=== PATIENT | male | born 1980 | race Caucasian/White ===

== ENCOUNTER 2023-07-09 15:37 | Outpatient (AMB) | payer OTHER, SELFPAY ==
--- NOTE | 2023-07-09 15:58 | MHC.PC.OV ---
Vital Signs 07/09/23 16:03 07/09/23 16:50 Height 5 ft 5 in Weight 175 lb BMI 29.1 BP 132/90 H 130/90 H Blood Pressure Location Rt brachial Rt brachial Position Sitting Sitting Pulse 78 Pulse Source Pulse Oximeter Pulse Oximetry (%) 98 Oxygen Delivery Method Room Air Intake Visit Reasons: NPV/requesting phy Intake Note: Patient here to establish care and asking for PE. Allergies No Known Allergies Allergy (Verified 07/09/23 16:03) Tobacco use date assessed: 07/09/23 Dental Screening Dental Screen Date: 07/09/23 Did you have a dental visit in the last 12 months?: Yes Did you have a dental problem in the last 6 months where you did not have access to dental care?: No Was dental information given to patient?: Patient has dentist HPI NPV/requesting phy HPI Details Patient is here for physical exam. His BP was noted to be elevated x2. I will have him take his blood pressure at home and drop off values in the near future. HPI Comments History of Present Illness Details Pt is here for a PE. colonoscopy is up to date [facility] Social History Housing: [place] Patient Tobacco Use Status: Never used Tobacco e-Cigarette/Vaping Use: Never Used service: No Current occupational status: employed Current occupational exposures/hazards: No Cognitive needs: No Hearing needs: No Vision needs: No Questionnaire PHQ-9 Over the last 2 weeks, how often have you been bothered by any of the following problems? 1. Little interest or pleasure in doing things: not at all 2. Feeling down, depressed, or hopeless: not at all 3. Trouble falling or staying asleep, or sleeping too much: more than half the days 4. Feeling tired or having little energy: not at all 5. Poor appetite or overeating: not at all 6. Feeling bad about yourself - or that you are a failure or have let yourself or your family down: not at all 7. Trouble concentrating on things, such as reading the newspaper or watching television: not at all 8. Moving or speaking so slowly that other people could have noticed. Or the opposite - being so fidgety or restless that you have been moving around a lot more than usual: not at all 9. Thoughts that you would be better off or of hurting yourself in some way: not at all Total score: 2 Depression Screening Interpretation: Negative Depression Screening Done: Yes 90610 - PHQ-9 Billing: Yes Source: Developed by Regina Hernandez Kurt Kroenke and colleagues, with an educational reinaldo from [employer]. Thrive Questionnaire Date Thrive assessed: 07/09/23 I am a: Patient What is your living situation today?: I have a steady place to live Within the past 12 months, did the food you bought not last and you didn't have the money to get more?: Never true Within the past 12 months, did you worry whether your food would run out before you got money to buy more?: Never true Do you have trouble paying for medicines?: No Do you have trouble getting transportation to medical appointments?: No Do you have trouble paying your heating and electricity bill?: No Do you have trouble taking care of your child, family member or friend?: No Do you have trouble with day-to-day activities such as bathing, preparing meals, shopping, managing finances, etc.?: No Are you currently unemployed and looking for a job?: No Are you interested in more education?: No Currently or been in a relationship where the following occur: no concerns reported AUDIT C Alcohol Use Questionnaire (AUDIT-C) 1. How often do you have a drink containing alcohol?: Never 3. How often do you have six or more drinks on one occasion?: Never Total Score: 0 Score Reviewed/Action Taken: No NAY-7 AMB Questionnaire NAY-7 Feeling nervous, anxious, or on edge: 0 = Not at all Not being able to stop or control worryin = Not at all Worrying too much about different things: 0 = Not at all Trouble relaxin = Not at all Being so restless that it is hard to sit still: 0 = Not at all Becoming easily annoyed or irritable: 1 = Several days Feeling afraid as if something awful might happen: 0 = Not at all Total NAY-7 score (0-4 normal; 5-9 mild; 10-14 moderate; 15-21 severe): 1 Source: Developed by Regina Hernandez Kurt Kroenke and colleagues, with an educational reinaldo from [employer]. NAY-7 Assessment Billing NAY-7 Assessment Tool: NAY-7 Assessment 22645 Review of Systems Const Denies chills and Denies fever(s) Eyes Denies blurry vision ENT Denies vertigo, Denies dizziness and Denies sore throat Card Denies chest pain at rest, Denies chest pain with activity, Denies diaphoresis, Denies dyspnea and Denies dyspnea on exertion Resp Denies cough, Denies dyspnea, Denies dyspnea on exertion and Denies wheezing GI Denies abdominal pain, Denies melena, Denies hematochezia, Denies constipation, Denies diarrhea and Denies loose stools Denies hematuria Musc Denies numbness and Denies tingling Skin/Breast Denies lesions Neuro Denies vertigo, Denies dizziness, Denies numbness and Denies tingling Psych Denies anxiety, Denies depression, Denies homicidal ideation, Denies suicidal ideation and Denies other (substance abuse) Aller/Immun Denies wheezing Physical exam (Primary Care) Vital Signs: Last Vital Signs Pulse 78 07/09/23 16:03 BP 130/90 H 07/09/23 16:50 Pulse Ox 98 07/09/23 16:03 Oxygen Delivery Method Room Air 07/09/23 16:03 BMI result Body Mass Index 29.1 Tobacco/Smoking Status: Tobacco use Status Tobacco use date assessed 07/09/23 07/09/23 16:09 Patient Tobacco Use Status Never used Tobacco 07/09/23 16:09 e-Cigarette/Vaping Use Never Used 07/09/23 16:09 PHQ-9: PHQ-9 Score PHQ-9: Total score 2 07/09/23 16:50 Depression Screening Interpretation: Negative Thrive Assessment: Date of Thrive Assessment Date Thrive assessed 07/09/23 07/09/23 16:09 Currently or been in a relationship where the following occur: no concerns reported Const General: cooperative Nutritional Appearance: well nourished Orientation/consciousness: patient oriented x3 HENMT Head: Yes normal to inspection, Yes normocephalic and Yes atraumatic Ears: TM normal on the right and TM normal on the left Eyes General: appearance normal, both eyes and all related structures Alignment and Position: alignment normal and position normal Neck Neck: Yes normal visual inspection and Yes no lymphadenopathy Resp Effort & Inspection: normal respiratory effort Auscultation: clear to auscultation bilaterally Cardio Rate: regular rate Rhythm: regular rhythm Heart sounds: S1 normal heart sound present, S2 normal heart sound present and no murmurs GI Palpation (GI): Soft to palpation and nontender Auscultation: normal bowel sounds Male General Exam: Yes normal external exam Penis: normal penis Scrotum: scrotum normal, testes descended bilaterally and no inguinal hernias Testes: no testicular mass Skin Rashes: no rashes Neuro General: patient oriented x3, moves all extremities, no focal motor deficits and deep tendon reflexes 2+ bilaterally Romberg Test: Negative Extrem Right lower extremity: no edema Left lower extremity: no edema Psych Affect: normal affect Attitude: cooperative Thought process: Normal thought process present Office Procedures Flu Questionnaire Does the patient have a severe egg allergy?: No Does the patient have severe life threatening allergies?: No Does the patient have a fever or illness today?: No Has the patient ever had Guillain-[place] Syndrome?: No Has the patient ever had any past reaction to a flu shot?: No Immunizations flu vacc [id number] 6mos up(PF) 60 mcg(15 mcgx4)/0.5 mL IM syringe Performing Provider: STEPHANIE Mendosa Performing Location: [facility] Administered by: OSCAR Yu on 07/09/23 17:00 Dose Route Admin Location Dispensed Lot Number Expiration Date NDC Punch Machine Hand 0.5 mL IM Left Deltoid 0.5 mL [id number] 01/04/24 [id number] [place] VIS Given Date VIS Provided VIS Publication Date 07/09/23 Single Vaccine 21 Eligibility Eligibility Date Funding Source Not [facility] Eligible 07/09/23 Private Assessment and Plan Assessment & Plan (1) Encounter for routine adult physical exam with abnormal findings: Code(s): Z00.01 - Encounter for general adult medical examination with abnormal findings Plan: pt will drop off BP values in the near future. (2) Elevated BP without diagnosis of hypertension: Code(s): R03.0 - Elevated blood-pressure reading, without diagnosis of hypertension Orders: Orders Lipid Panel Today Z00.00 - Encounter for general adult medical examination without abnormal findings Complete Blood Count Auto Diff Today Z00.00 - Encounter for general adult medical examination without abnormal findings Comprehensive [place]. Panel Fast Today Z00.00 - Encounter for general adult medical examination without abnormal findings TSH reflex Free T4 Today Z00.00 - Encounter for general adult medical examination without abnormal findings UA CC w/rflx Micro + Cult Today Z00.00 - Encounter for general adult medical examination without abnormal findings Influenza [id number] Immunization Today Z23 - Encounter for immunization Coding Level of Care Code New Pt Prev Care 40-64y(17909) Diagnoses Encounter for routine adult physical exam with abnormal findings Z00.01 Elevated BP without diagnosis of hypertension R03.0 Additional Codes NAY-7 Assessment Billing - NAY-7 Assessment Tool: NAY-7 Assessment 01999 ([id number])
[2023-07-09 16:03] VITALS: BP 132/90; PULSE 78; O2SAT 98; BMI 29.1
[2023-07-09 16:50] VITALS: BP 130/90
== END 2023-07-09 17:16 | disposition home or self-care (01) ==
PROVIDERS: PCP Nurse Practitioner Family; Visit Provider Nurse Practitioner Family
DX: Z00.01 Encounter for general adult medical examination with abnormal findings (principal); R03.0 Elevated blood-pressure reading, without diagnosis of hypertension; Z23 Encounter for immunization
CPT/HCPCS: 90471; 90686; 99386

== ENCOUNTER 2024-07-14 08:32 | Outpatient (AMB) | payer OTHER, SELFPAY ==
[2024-07-14 08:34] VITALS: BP 128/80; PULSE 78; O2SAT 98; BMI 28.1
--- NOTE | 2024-07-14 08:34 | MHC.PC.OV ---
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 Accompanied by: Self / Same As Patient Allergies No Known Allergies Allergy (Verified 07/14/24 09:33) Medication List - Last Reconciled 07/14/24 by FRANCESCO Mendosa No Known Home Meds Tobacco use date assessed: 07/14/24 Dental Screening Dental Screen Date: 07/14/24 Did you have a dental visit in the last 12 months?: Yes Did you have a dental problem in the last 6 months where you did not have access to dental care?: No Was dental information given to patient?: Patient has dentist HPI Annual PE HPI Details History of Present Illness The patient is a 43-year-old male presenting for a physical examination. He denies any fevers, chills, chest pain, shortness of breath, headache, nausea, vomiting, diarrhea, or constipation. Additionally, there is no reported family history of cancer, including pancreatic and prostate cancer. He does not have any ongoing issues related to anxiety or depression, and there are no suicidal or homicidal ideations. The current status appears stable as no acute medical issues or significant chronic problems were reported at this visit. Health Maintenance - Discussed the importance of obtaining routine laboratory evaluations, including fasting blood tests, to monitor general health status. Social History Review of Systems - General: Denies fevers, chills. - Cardiovascular: Denies chest pain. - Respiratory: Denies shortness of breath. - Gastrointestinal: Denies nausea, vomiting, diarrhea, constipation. - Neurological: Denies headache. - Psychiatric: Denies anxiety, depression, suicidal ideation, homicidal ideation. Physical Exam General: Cooperative, healthy appearing, comfortable, no acute distress and well developed Orientation: Patient oriented x3 Limitations: No limitations Head: Normal to inspection Ears: TMs without erythema Nose: Normal external nose present Face and sinus: Normal facial exam Eyes: Appearance normal, both eyes and all related structures Neck: Normal visual inspection and Yes full ROM Respiratory: Normal respiratory effort and able to speak in complete sentences. Clear to auscultation bilaterally Cardiovascular: Regular rate and rhythm. Normal S1 and S2 GI: Normal to inspection. Soft to palpation and nontender Skin: No rashes or lesions noted Neuro: Patient oriented x3 Extremities: Normal to inspection Results Plan - Encourage the patient to complete fasting laboratory tests as part of routine health maintenance. Patient was informed and verbally consented to the use of an ambient scribe for clinic note documentation during this visit. Discussion Notes I addressed the importance of regular health maintenance and preventive care, including the need for fasting labs to ensure overall health status. No acute medical issues were identified during the visit. I advised the patient about the significance of these routine evaluations to facilitate early detection of potential health issues. The patient verbalized understanding and expressed willingness to follow through with lab testing. Patient Instructions - Please schedule and complete your fasting laboratory tests at your earliest convenience. - Continue to maintain a healthy lifestyle with a balanced diet and regular exercise. - Return for follow-up as recommended or if any new symptoms arise. [facility] Surgical History No pertinent past surgical history Social History Housing: [place] Patient Tobacco Use Status: Never used Tobacco e-Cigarette/Vaping Use: Never Used service: No Current occupational status: employed Current occupational exposures/hazards: No Cognitive needs: No Hearing needs: No Vision needs: No Questionnaire PHQ-9 Over the last 2 weeks, how often have you been bothered by any of the following problems? 1. Little interest or pleasure in doing things: not at all 2. Feeling down, depressed, or hopeless: not at all 3. Trouble falling or staying asleep, or sleeping too much: more than half the days 4. Feeling tired or having little energy: not at all 5. Poor appetite or overeating: not at all 6. Feeling bad about yourself - or that you are a failure or have let yourself or your family down: not at all 7. Trouble concentrating on things, such as reading the newspaper or watching television: not at all 8. Moving or speaking so slowly that other people could have noticed. Or the opposite - being so fidgety or restless that you have been moving around a lot more than usual: not at all 9. Thoughts that you would be better off or of hurting yourself in some way: not at all Total score: 2 Depression Screening Interpretation: Negative Depression Screening Done: Yes 06271 - PHQ-9 Billing: Yes Source: Developed by Drs. He Romero, Regina Medrano, Shahbaz Babcock and colleagues, with an educational reinaldo from [employer]. Thrive Questionnaire Date Thrive assessed: 07/14/24 I am a: Patient What is your living situation today?: I have a steady place to live Within the past 12 months, did the food you bought not last and you didn't have the money to get more?: Never true Within the past 12 months, did you worry whether your food would run out before you got money to buy more?: Never true Do you have trouble paying for medicines?: No Do you have trouble getting transportation to medical appointments?: No Do you have trouble paying your heating and electricity bill?: No Do you have trouble taking care of your child, family member or friend?: No Do you have trouble with day-to-day activities such as bathing, preparing meals, shopping, managing finances, etc.?: No Are you currently unemployed and looking for a job?: No Are you interested in more education?: No Please select the resources that you would like help with: None Currently or been in a relationship where the following occur: No concerns reported THRIVE Score: 0 AUDIT C Alcohol Use Questionnaire (AUDIT-C) 1. How often do you have a drink containing alcohol?: Never 3. How often do you have six or more drinks on one occasion?: Never Total Score: 0 Score Reviewed/Action Taken: Yes NAY-7 AMB Questionnaire NAY-7 Date NAY - 7 assessed: 07/14/24 Feeling nervous, anxious, or on edge: 0 = Not at all Not being able to stop or control worryin = Not at all Worrying too much about different things: 0 = Not at all Trouble relaxin = Not at all Being so restless that it is hard to sit still: 0 = Not at all Becoming easily annoyed or irritable: 0 = Not at all Feeling afraid as if something awful might happen: 0 = Not at all Total NAY-7 score (0-4 normal; 5-9 mild; 10-14 moderate; 15-21 severe): 0 Source: Developed by Drs. He Romero, Regina Medrano, Shahbaz Babcock and colleagues, with an educational reinaldo from [employer]. NAY-7 Assessment Billing NAY-7 Assessment Tool: NAY-7 Assessment 75666 Physical exam (Primary Care) Vital Signs: Last Vital Signs Pulse 78 07/14/24 08:34 BP 128/80 07/14/24 08:34 Pulse Ox 98 07/14/24 08:34 BMI result Body Mass Index 28.1 Tobacco/Smoking Status: Tobacco use Status Tobacco use date assessed 07/14/24 07/14/24 08:35 Patient Tobacco Use Status Never used Tobacco 07/14/24 08:35 e-Cigarette/Vaping Use Never Used 07/14/24 08:35 PHQ-9: PHQ-9 Score PHQ-9: Total score 2 07/14/24 09:17 Depression Screening Interpretation: Negative Thrive Assessment: Date of Thrive Assessment Date Thrive assessed 07/14/24 07/14/24 08:35 Currently or been in a relationship where the following occur: No concerns reported Office Procedures Flu Questionnaire Does the patient have a severe egg allergy?: No Does the patient have severe life threatening allergies?: No Does the patient have a fever or illness today?: No Has the patient ever had Guillain-[place] Syndrome?: No Has the patient ever had any past reaction to a flu shot?: No Immunizations Fluarix Triv 0513-3321 (PF) 45 mcg (15 mcg x 3)/0.5 mL IM syringe Performing Provider: STEPHANIE Mendosa Performing Location: [facility] [place] [facility] Administered by: Uche Haley CMA on 07/14/24 09:17 Dose Route Admin Location Dispensed Lot Number Expiration Date [facility] Computer Installer 0.5 mL IM Right Deltoid 0.5 mL [id number] 01/03/25 [id number] [employer] VIS Given Date VIS Provided VIS Publication Date 07/14/24 Single Vaccine 21 Eligibility Eligibility Date Funding Source Not [facility] Eligible 07/14/24 Private Coding Level of Care Code Est Pt Prev Care 40-64y(38765) Diagnoses Physical exam Z00.00 Additional Codes NAY-7 Assessment Billing - NAY-7 Assessment Tool: NAY-7 Assessment 78678 ([id number]) PHQ-9 - 92922 - PHQ-9 Billing: Yes ([id number]) Assessment & Plan Assessment & Plan (1) Physical exam: Code(s): Z00.00 - Encounter for general adult medical examination without abnormal findings Category: Medical Plan . Orders: Orders Comprehensive [place]. Panel Fast Today Z00.00 - Encounter for general adult medical examination without abnormal findings TSH reflex Free T4 Today Z00.00 - Encounter for general adult medical examination without abnormal findings UA CC w/rflx Micro + Cult Today Z00.00 - Encounter for general adult medical examination without abnormal findings Lipid Panel Today Z00.00 - Encounter for general adult medical examination without abnormal findings Complete Blood Count Auto Diff Today Z00.00 - Encounter for general adult medical examination without abnormal findings Influenza [id number] Immunization Today Z23 - Encounter for immunization
== END 2024-07-14 09:26 | disposition home or self-care (01) ==
PROVIDERS: PCP Nurse Practitioner Family; Visit Provider Nurse Practitioner Family
DX: Z23 Encounter for immunization (principal); Z00.00 Encounter for general adult medical examination without abnormal findings

== ENCOUNTER → 2024-07-14 08:32 | Outpatient (BNVA) | payer OTHER, SELFPAY | PROVIDERS: PCP Nurse Practitioner Family; Visit Provider Nurse Practitioner Family | DX: Z00.00 Encounter for general adult medical examination without abnormal findings (principal); Z23 Encounter for immunization | CPT/HCPCS: 90471; 90656; 96127 ==

== ENCOUNTER 2024-12-17 08:01 | Outpatient (AMB) | payer OTHER, SELFPAY ==
--- NOTE | 2024-12-17 08:08 | AM.OFFWIN_ITS ---
Intake Vital Signs 12/17/24 08:10 Height 5 ft 5 in Weight 159 lb BMI 26.5 BP 122/80 Blood Pressure Location Rt brachial Position Sitting Pulse 82 Pulse Source Pulse Oximeter Pulse Oximetry (%) 98 Oxygen Delivery Method Room Air Intake Visit Reasons: EP Back/RT hand pain Intake Note: Patient here for back and right arm pain that has been Patient Tobacco Use Status: Never used Tobacco Allergies No Known Allergies Allergy (Verified 12/17/24 08:16) Medication List - Last Reconciled 12/17/24 by Trini Figueroa MD No Known Home Meds Do you need a note to return to daycare/school/sports/work: No HPI EP Back/RT hand pain HPI Details History - The patient is a 44-year-old male pres enting with back and arm pain. - The patient reports the pain as being on the right side, extending down the arm and up the neck, causing numbness in the neck. - The pain started two years ago after d riving when the patient?s whole right side went numb, leading to an ER visit and admission. - Initial treatment involved a cortisone injection which provided relief at the start. - Pain has returned and was noticed on A pril 2022. - The patient currently manages pain wit h ibuprofen. 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 - The patient does not recall any specif ic inciting incidents or accidents leading to the problem. - MRI done elsewhere indicated a problem at cervical discs C4-5-6. - Reports dropping objects due to weakne ss in the arm. Medical History: - C4-5-6 disc problems diagnosed from a previous MRI. - History of right-sided back and arm pa in managed with cortisone injection two years ago. Medications: - Ibuprofen for pain. - Previously prescribed Gabapentin at [facility] ER two years ago for pain. 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 Diagnostic Results: - MRI conducted on November 01, 2022, at an other clinic reported issues at C4-5-6. Problem List - Cervical radiculopathy - Right-sided arm and back pain Patient Instructions - Take prescribed medication (Gabapentin ) regularly, especially at night. - Obtain a copy of the previous MRI and disc from [facility] or the previous clinic. - Bring MRI report when visiting the [facility] specialist. - Book an appointment with the pain spec ialist at [facility]. - Call [facility] to request and collect imaging records. Review of Systems - General: No fever no chills - Neurological: No headaches no dizziness - Ear nose throat: No sore throat no hearing difficulty no ear pain - Cardiovascular: No syncope, no chest pain, no palpitations - Gastrointestinal: No nausea vomiting or diarrhea Physical Exam General: No acute distress HEENT: No acute findings Neck: Supple, but reports pain and numbness when pain is severe Respiratory system: Able to talk in full sentences, no audible wheeze Gastrointestinal: No pain Extremities: Range of motion both shoulders intact [employer]IC[employer]: Alert awake oriented x3 motor sensory intact, strength 5 x 5 both hands Skin: Normal turgor [facility] Surgical History No pertinent past surgical history Social History Housing: House Patient Tobacco Use Status: Never used Tobacco e-Cigarette/Vaping Use: Never Used service: No Current occupational status: employed Current occupational exposures/hazards: No Cognitive needs: No Hearing needs: No Vision needs: No Physical Exam Vital Signs: Last Vital Signs Pulse 82 12/17/24 08:10 BP 122/80 12/17/24 08:10 Pulse Ox 98 12/17/24 08:10 Oxygen Delivery Method Room Air 12/17/24 08:10 BMI result Body Mass Index 26.5 Assessment & Plan Assessment & Plan (1) Cervical disc disorder at C4-C5 level with radiculopathy: Code(s): M50.121 - Cervical disc disorder at C4-C5 level with radiculopathy (2) Radiculitis of right cervical region: Code(s): M54.12 - Radiculopathy, cervical region (3) Paresthesia of right arm: Code(s): R20.2 - Paresthesia of skin (4) Pain management: Code(s): R52 - Pain, unspecified Plan History - The patient is a 44-year-old male presenting with back and arm pain. - The patient reports the pain as being on the right side, extending down the arm and up the neck, causing numbness in the neck. - The pain started two years ago after driving when the patient?s whole right side went numb, leading to an ER visit and admission. - Initial treatment involved a cortisone injection which provided relief at the start. - Pain has returned and was noticed on November 01, 2022. - The patient currently manages pain with ibuprofen. 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 - The patient does not recall any specific inciting incidents or accidents leading to the problem. - MRI done elsewhere indicated a problem at cervical discs C4-5-6. - Reports dropping objects due to weakness in the arm. Medical History: - C4-5-6 disc problems diagnosed from a previous MRI. - History of right-sided back and arm pain managed with cortisone injection two years ago. Medications: - Ibuprofen for pain. - Previously prescribed Gabapentin at the ER two years ago for pain. 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 Diagnostic Results: - MRI conducted on November 01, 2022, at another clinic reported issues at C4-5-6. Problem List - Cervical radiculopathy - Right-sided arm and back pain Patient Instructions - Take prescribed medication (Gabapentin) regularly, especially at night. - Obtain a copy of the previous MRI and disc from [facility] or the previous clinic. - Bring MRI report when visiting the pain specialist. - Book an appointment with the pain specialist at [facility]. - Call [facility] to request and collect imaging records. Orders: Referrals Pain Management Referral M54.12 - Radiculopathy, cervical region Medications: New gabapentin 300 mg PO BID 60 caps 0RF Coding Level of Care Code Est Pt Level 4 (63038) Diagnoses Cervical disc disorder at C4-C5 level with radiculopathy M50.121 Radiculitis of right cervical region M54.12 Paresthesia of right arm R20.2 Pain management R52
[2024-12-17 08:10] VITALS: BP 122/80; PULSE 82; O2SAT 98; BMI 26.5
== END 2024-12-17 08:41 | disposition home or self-care (01) ==
PROVIDERS: PCP Nurse Practitioner Family; Visit Provider Internal Medicine
DX: M50.121 Cervical disc disorder at C4-C5 level with radiculopathy (principal); M54.12 Radiculopathy, cervical region; R20.2 Paresthesia of skin

== ENCOUNTER → 2024-12-17 08:01 | Outpatient (BNVA) | payer OTHER, SELFPAY | PROVIDERS: PCP Nurse Practitioner Family; Visit Provider Internal Medicine | DX: Z13.89 Encounter for screening for other disorder (principal) ==